=== PATIENT | male | born 1950 ===

== ENCOUNTER 2016-09-11 19:48 | Inpatient (IN) | payer BC ==
--- NOTE | ~2016-09-11 | PRECARD ---
H&P [facility] [address] [facility] [place]. [address] NAME: EDILBERTO NIEVES : 54 STATUS : ADM IN [facility]#: [id number] AGE: 66 ADM/REG DATE : 09/11/16 MR#: [id number] REPORT SERV DATE: 09/12/16 DICTATED BY: DENILSON MEMBRENO JR. 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 HISTORY OF PRESENT ILLNESS: A 66-year-old white male with three episodes of resting and post exertional chest pain over the past two weeks. More prolonged pain yesterday, prompted trip to the emergency room and admission. He describes the pain as substernal, radiating to his neck and left upper extremity. No associated shortness of breath, diaphoresis, nausea, vomiting. Maximum duration yesterday several hours. Initial troponin 0.8, rising to 2.0 today. EKG shows a small inferior Q-waves and borderline QRS duration. Otherwise, unremarkable. He is not having any chest discomfort today. He has a headache from the nitroglycerin paste 1 inch that was applied earlier. He is currently normotensive, but has a history of hypertension and treated hyperlipidemia. FAMILY HISTORY: Positive for premature coronary heart disease. SOCIAL HISTORY: Nonsmoker for the past thirty years. No alcohol or illicit drugs. Retired central services tech. , supportive family. ALLERGIES: NO KNOWN CONTRAST OR DRUG ALLERGIES. HOME MEDICATIONS: Include 81 mg aspirin, lisinopril 20 mg daily, simvastatin 20 mg daily. PHYSICAL EXAMINATION: VITAL SIGNS: Blood pressure 122/69, pulse is 58 and regular, respirations 18, and afebrile. HEENT: No xanthelasma. NECK: No JVD at 30 degrees, no thyromegaly, no carotid bruit. LUNGS: Clear to auscultation and percussion. COR: No thrills, heaves, normal S1, S2. No gallop. No rub. No murmur. ABD: Soft, nontender, no hepatosplenomegaly, no mass. EXT: Without edema or pulse deficit. MS: Back without spine or costovertebral angle tenderness. NEURO: Symmetric findings. IMPRESSION: Acute coronary syndrome - [id number]-SG-bwyprrwnh myocardial infarction. PLAN: Medical stabilization, followed by coronary arteriogram, possible PCI today. Risks and benefits discussed. All questions answered. /CHALINO H&P [address] [place]. [address] NAME: EDILBERTO NIEVES : 54 STATUS : ADM IN PAT#: [id number] AGE: 66 ADM/REG DATE : 09/11/16 MR#: [id number] REPORT SERV DATE: 09/12/16 DICTATED BY: DENILSON MEMBRENO JR. DATE: 09/12/16 REPORT STATUS : Draft TRANSCRIBED BY: CHALINO DATE: 09/12/16 Denilson Membreno Jr., M.D. / [id number] CC: Leon Duran
[2016-09-11] MEDS ORDERED: ZOCOR20 PO (20:10)
[2016-09-11] MEDS ORDERED: PRIN20 PO (20:10)
[2016-09-11] MEDS ORDERED: ASAB PO (20:11)
[2016-09-11 20:54] LABS: BASOPHILS 0.1 %; BASOPHILS ABSOLUTE 0.01 10/3/uL (0.0-0.16); EOSINOPHILS 0.6 %; EOSINOPHILS ABSOLUTE 0.04 10/3/uL (0.0-0.53); HEMATOCRIT 44.7 % (40.0-51.0); HEMOGLOBIN 15.4 g/dL (13.6-17.8); IMMATURE GRANULOCYTES 0.1 %; IMMATURE GRANULOCYTES ABSOLUTE 0.01 10/3/uL (0.0-0.11); LYMPHOCYTES 26.8 %; MEAN CORPUS HGB CONC 34.5 g/dL (32.0-36.0); MEAN CORPUSCULAR HEMOGLOB 31.6 pg (26.0-34.0); MEAN CORPUSCULAR VOLUME 91.8 fL (80-100); MONOCYTES 8.9 %; NEUTROPHILS 63.5 %; NEUTROPHILS ABSOLUTE 4.26 10/3/uL (2.02-8.40); PLATELET COUNT 200 10/3/uL (150-400); RBC DISTRIBUTION WIDTH 13.4 % (12.0-16.0); RED CELL COUNT 4.87 10/6/uL (4.7-6.1); WHITE BLOOD CELLS 6.7 10/3/uL (4.5-10.5)
[2016-09-11 20:55] LABS: MANUAL DIFF NO %
[2016-09-11 21:04] LABS: PARTIAL THROMBO TIME 27.1 SEC (22.5-37.2); PROTIME (NOT ORD) 12.8 SEC (12.0-14.5)
[2016-09-11 21:59] LABS: BUN (BLOOD UREA NITROGEN) 15 MG/DL (6-23); CALCIUM, SERUM 8.8 MG/DL (8.5-10.4); CHEST PAIN PROFILE TAT 0 Hrs 23 Mins; CHLORIDE, SERUM 108 MMOL/L (96-112); CO2 (CARBON DIOXIDE) 26 MMOL/L (24-34); GFR AFRICAN AMERICAN 92 ML/MIN (>=60); GFR NON AFRICAN AMERICAN 79 ML/MIN (>=60); GLUCOSE, SERUM 86 MG/DL (60-99); SODIUM, SERUM 142 MMOL/L (135-148); TROPONIN I 0.82 NG/ML (<0.05)
[2016-09-12 02:00] LABS: ASCORBIC ACID (UR NOT ORDER) NEG (NEG); BILIRUBIN, URINE NEGATIVE (NEG); KETONE, URINE NEGATIVE (NEG); LEUKOCYTE ESTERASE(NOT OR NEG (NEG); WBC (NOT ORDERED) (RFLEX) 1 (0-5)
[2016-09-12 05:51] LABS: CHOL/HDL RATIO(NOT ORDER) 3.3 (0-5)
[2016-09-12 05:52] LABS: INTERNATIONAL NORMAL RATI 1.1 UNITS (-); PROTIME (NOT ORD) 14.2 SEC (12.0-14.5)
[2016-09-12 05:53] LABS: PARTIAL THROMBO TIME 64.4 SEC (22.5-37.2); TROPONIN I 2.05 NG/ML (<0.05)
[2016-09-12 16:41] LABS: CK-MB 12.5 NG/ML
[2016-09-12 16:43] LABS: CKMB INDEX (NOT ORD) 3.8
[2016-09-12 18:52] LABS: BASOPHILS 0.1 %; BASOPHILS ABSOLUTE 0.01 10/3/uL (0.0-0.16); EOSINOPHILS 0.1 %; EOSINOPHILS ABSOLUTE 0.01 10/3/uL (0.0-0.53); HEMATOCRIT 41.9 % (40.0-51.0); HEMOGLOBIN 14.3 g/dL (13.6-17.8); IMMATURE GRANULOCYTES 0.2 %; IMMATURE GRANULOCYTES ABSOLUTE 0.02 10/3/uL (0.0-0.11); LYMPHOCYTES 9.3 %; LYMPHOCYTES ABSOLUTE 1.02 10/3/uL (0.67-4.30); MEAN CORPUS HGB CONC 34.1 g/dL (32.0-36.0); MEAN CORPUSCULAR HEMOGLOB 31.4 pg (26.0-34.0); MEAN CORPUSCULAR VOLUME 91.9 fL (80-100); MEAN PLATELET VOLUME 10.9 fL (9.2-13.0); MONOCYTES 6.8 %; MONOCYTES ABSOLUTE 0.74 10/3/uL (0.21-1.20); NEUTROPHILS 83.5 %; NEUTROPHILS ABSOLUTE 9.14 10/3/uL (2.02-8.40); PLATELET COUNT 192 10/3/uL (150-400); RBC DISTRIBUTION WIDTH 13.5 % (12.0-16.0); RED CELL COUNT 4.56 10/6/uL (4.7-6.1)
[2016-09-12 18:53] LABS: MANUAL DIFF NO %; WHITE BLOOD CELLS 10.9 10/3/uL (4.5-10.5)
[2016-09-12 19:09] LABS: CK-MB 12.7 NG/ML; CKMB INDEX (NOT ORD) 4.2
[2016-09-12 22:40] LABS: BASOPHILS 0.1 %; BASOPHILS ABSOLUTE 0.01 10/3/uL (0.0-0.16); EOSINOPHILS 0.1 %; EOSINOPHILS ABSOLUTE 0.01 10/3/uL (0.0-0.53); HEMATOCRIT 43.8 % (40.0-51.0); HEMOGLOBIN 15.1 g/dL (13.6-17.8); IMMATURE GRANULOCYTES 0.2 %; IMMATURE GRANULOCYTES ABSOLUTE 0.02 10/3/uL (0.0-0.11); LYMPHOCYTES 11.7 %; LYMPHOCYTES ABSOLUTE 1.14 10/3/uL (0.67-4.30); MEAN CORPUS HGB CONC 34.5 g/dL (32.0-36.0); MEAN CORPUSCULAR HEMOGLOB 31.8 pg (26.0-34.0); MEAN CORPUSCULAR VOLUME 92.2 fL (80-100); MONOCYTES 5.2 %; MONOCYTES ABSOLUTE 0.51 10/3/uL (0.21-1.20); NEUTROPHILS 82.7 %; NEUTROPHILS ABSOLUTE 8.09 10/3/uL (2.02-8.40); PLATELET COUNT 200 10/3/uL (150-400); RBC DISTRIBUTION WIDTH 13.6 % (12.0-16.0); RED CELL COUNT 4.75 10/6/uL (4.7-6.1); WHITE BLOOD CELLS 9.8 10/3/uL (4.5-10.5)
[2016-09-12 22:41] LABS: MANUAL DIFF NO %
[2016-09-13 03:49] LABS: BASOPHILS 0.1 %; BASOPHILS ABSOLUTE 0.01 10/3/uL (0.0-0.16); EOSINOPHILS 0.5 %; EOSINOPHILS ABSOLUTE 0.04 10/3/uL (0.0-0.53); HEMATOCRIT 40.6 % (40.0-51.0); HEMOGLOBIN 13.8 g/dL (13.6-17.8); IMMATURE GRANULOCYTES 0.2 %; IMMATURE GRANULOCYTES ABSOLUTE 0.02 10/3/uL (0.0-0.11); LYMPHOCYTES 14.9 %; MEAN CORPUSCULAR HEMOGLOB 31.5 pg (26.0-34.0); MEAN CORPUSCULAR VOLUME 92.7 fL (80-100); MEAN PLATELET VOLUME 10.9 fL (9.2-13.0); MONOCYTES 9.2 %; MONOCYTES ABSOLUTE 0.74 10/3/uL (0.21-1.20); NEUTROPHILS 75.1 %; NEUTROPHILS ABSOLUTE 6.04 10/3/uL (2.02-8.40); PLATELET COUNT 177 10/3/uL (150-400); RBC DISTRIBUTION WIDTH 13.6 % (12.0-16.0); RED CELL COUNT 4.38 10/6/uL (4.7-6.1); WHITE BLOOD CELLS 8.1 10/3/uL (4.5-10.5)
[2016-09-13 03:54] LABS: MANUAL DIFF NO %
[2016-09-13 04:09] LABS: BUN (BLOOD UREA NITROGEN) 11 MG/DL (6-23); CALCIUM, SERUM 8.1 MG/DL (8.5-10.4); CHLORIDE, SERUM 111 MMOL/L (96-112); CK-MB 19.6 NG/ML; CKMB INDEX (NOT ORD) 6.3; CO2 (CARBON DIOXIDE) 23 MMOL/L (24-34); CPK 310 U/L (0-200); CREATININE 0.81 MG/DL (0.70-1.30); GFR AFRICAN AMERICAN 109 ML/MIN (>=60); GFR NON AFRICAN AMERICAN 94 ML/MIN (>=60); GLUCOSE, SERUM 85 MG/DL (60-99); SODIUM, SERUM 143 MMOL/L (135-148); TROPONIN I 3.73 NG/ML (<0.05)
[2016-09-13] MEDS ORDERED: ASAB PO (11:37)
[2016-09-13] MEDS ORDERED: PRIN20 (11:39)
[2016-09-13] MEDS ORDERED: LIPITOR40 PO (11:44)
[2016-09-13] MEDS ORDERED: LOP25 PO (11:45)
[2016-09-13] MEDS ORDERED: BRILINTA90 MG (11:47)
== END 2016-09-13 12:38 | disposition home or self-care (01) | DRG 247 ==
LOC: ER 19:48 → 6NO 22:56 → SSU1 09-12 15:15 → CCU 09-12 17:49
PROVIDERS: Emergency Medicine; Internal Medicine Cardiovascular Disease
PROC: 027035Z Dilation of Coronary Artery, One Artery with Two Drug-eluting Intraluminal Devices, Percutaneous Approach (ICD-10-PCS; principal; 2016-09-11)
PROC: 4A023N7 Measurement of Cardiac Sampling and Pressure, Left Heart, Percutaneous Approach (ICD-10-PCS; 2016-09-11)
PROC: B2151ZZ Fluoroscopy of Left Heart using Low Osmolar Contrast (ICD-10-PCS; 2016-09-11)
PROC: B2111ZZ Fluoroscopy of Multiple Coronary Arteries using Low Osmolar Contrast (ICD-10-PCS; 2016-09-11)
PROC: 02703ZZ Dilation of Coronary Artery, One Artery, Percutaneous Approach (ICD-10-PCS; 2016-09-12)
DX: I21.4 Non-ST elevation (NSTEMI) myocardial infarction (principal); I10 Essential (primary) hypertension; T82.867A Thrombosis due to cardiac prosthetic devices, implants and grafts, initial encounter; E78.5 Hyperlipidemia, unspecified; E78.00 Pure hypercholesterolemia, unspecified; Z82.49 Family history of ischemic heart disease and other diseases of the circulatory system; Z87.891 Personal history of nicotine dependence
CPT/HCPCS: 71010; 80048; 80061; 81001; 82550; 82553; 83735; 84460; 84484; 85025; 85347; 85610; 85730; 92941; 92978; 93005; 93306; 93454; 93458; 99152; 99153; 99285; A9270-GY; C1725; C1753; C1757; C1769; C1874; C1887; C1894; C9600; C9606; J0583; J1327; J2250; J3010; Q9967